=== PATIENT | female | born 1980 | race Caucasian/White ===

== ENCOUNTER → 2020-10-09 16:36 | Outpatient (CLI) | payer OTHER, SELFPAY ==
--- NOTE | ~2020-10-09 | XR_ITS ---
EXAMINATION: XR foot RT min 3V DATE: 10/09/2020 17:03 INDICATION: Posttraumatic pain at the distal phalanx of the right great toe TECHNIQUE: Dorsoplantar, two oblique and lateral views of the right foot were obtained. COMPARISON: 08/30/2017 FINDINGS: Nondisplaced tuft fracture at the distal branch of the right great toe. Alignment remains essentially anatomic. No other fractures identified. 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 Small osteophyte at the lateral base of the fifth metatarsal at the site of a now chronic healed fracture. Joint spaces are relatively preserved. Soft tissues are unremarkabl e. IMPRESSION: 1. Nondisplaced fracture at the tuft of the right first distal phalanx. Reviewed, dictated and finalized at location A. [employer]ER
== END ==
PROVIDERS: Visit Provider Nurse Practitioner Family
DX: M79.674 Pain in right toe(s) (principal); S92.811A Other fracture of right foot, initial encounter for closed fracture
CPT/HCPCS: 73630

== ENCOUNTER → 2020-11-27 15:18 | Outpatient (CLI) | payer OTHER, SELFPAY ==
--- NOTE | ~2020-11-27 | XR_ITS ---
EXAMINATION: XR foot RT min 3V DATE: 11/27/2020 16:01 INDICATION: Right foot pain. Injury. TECHNIQUE: 4 views of right foot were obtained. COMPARISON: Right foot radiographs 10/09/2020 FINDINGS: Bone alignment is normal. Again seen is a nondisplaced stellate fracture of tuft of first d istal phalanx. There is mild chronic flattening of head of second metatarsal, consistent with osteone crosis (Freiberg's infraction). There is mild osteoarthritis of some the interphalangeal joints. Ther e is a small enthesophyte at posterior aspect of calcaneal tuberosity. IMPRESSION: 1. Healing nondisplaced fracture of tuft of first distal phalanx. 2. Mild polyarticular osteoarthritis. Reviewed, dictated and finalized at location A.
== END ==
PROVIDERS: PCP Family Medicine; Visit Provider Family Medicine
DX: S92.911A Unspecified fracture of right toe(s), initial encounter for closed fracture (principal); M19.071 Primary osteoarthritis, right ankle and foot
CPT/HCPCS: 73630

== ENCOUNTER 2021-06-25 14:50 | Outpatient (RCR) | payer OTHER, SELFPAY ==
--- NOTE | 2021-06-25 16:42 | PTOPEVAL ---
INITIAL PHYSICAL THERAPY EVALUATION Thank you for referring Lara José to [facility] PT evaluation reveals R SIJ dysfunction as well as increase with urge urinary sensation. Pelvic and sacral correction were done, urge strategies were taught as well as levator strengthening exercises given. I will follow up via phone with Lara next week. If further PT is required, I will formulate a plan of care and forward it to you. I agree with the above. Referring Physician Date Admitting Provider: Attending Provider: Mary Jain CNM Referring Provider: PatyPT Outpatient Evaluation Start: 06/25/21 15:15 Freq: Status: Active Protocol: Document 06/25/21 15:10 SKYLER (Rec: 06/25/21 16:41 SKYLER [id number]) Therapy Assessment Status Assessment Status Assessment Status Evaluation Outpatient Past Medical History Past Medical History Source of Past Medical History Patient Musculoskeletal History Hx Fractures Yes: R 5th metatarsal fx 2017 surgery 2020 Evaluation Information Problem Diagnosis urinary frequency, dyspareunia in female Onset August 2019 Subjective Information Lara states that she feels Query Text:As Reported By Patient/ has to urinate all of the time Family . Good about drinking a lot of water. But also drinks increased coffee. Did have some blood in urine on one occasion with testing - but follow up testing was negative . 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 Home Meds Must Be Re-entered With Each Visit. Comments Additional Prior Level of Function recreation - read, go for Comments walks, travel, children/family , out to dinner with , wiliam Pain Assessment Timing of Pain Assessment Timing of Pain Assessment Assessment Self Report Self Report Pain Level 0 Pain Score Pain Score 0: Self Report Cervical and Lumbar ROM Lumbar ROM Lumbar ROM WNL Lumbar Comments symmetrical motion at SIJ Lower Extremity Range of Motion Hip Range of Motion Bilateral Hip Range of Motion Comments in sitting - WNL for hip flexion, abduction, adduction, IR, ER Lower Extremity Muscle Strength Testing Hip Strength Bilatera
--- NOTE | 2021-07-06 16:08 | PCPTNOTE ---
Follow up phone call made. Lara is working to decrease caffeine, using distraction to stop for going to bathroom just because she has time as well as when she wakes up at night. Did count output flow - always over 8 seconds. Overall thinks she is progressing. Decided to check in again next week again.
--- NOTE | 2021-07-14 16:03 | PCPTNOTE ---
Follow up phone call made - no answer. Message left. Will d/c from PT at this time.
--- NOTE | 2021-07-14 16:06 | PCPTNOTE ---
PHYSICAL THERAPY DISCHARGE SUMMARY Admitting Provider: Attending Provider: Mary Jain CNM Patient:Lara José Date of :1980 Lara was only seen for initial evaluation on 06/25/2021. It was decided at this visit that I would follow up via phone to see how she was doing. Did speak with Lara on 07/06/21 and she was doing well. Tried again 07/14/21 - but no answer, message left. No return phone call. Will d/c Lara from PT at this time. Thank you for referring Lara to [facility]. Please review, sign, date and return this discharge summary SKY. I have been updated about Lara's current status and I agree with discharge from the above service at this time. Referring Physician Date
== END 2021-07-15 11:17 | disposition home or self-care (01) ==
LOC: ANHPT 14:50
PROVIDERS: PCP Family Medicine
DX: R35.0 Frequency of micturition (principal); N94.10 Unspecified dyspareunia
CPT/HCPCS: 97110; 97161

== ENCOUNTER → 2021-12-02 15:30 | Outpatient (CLI) | payer OTHER, SELFPAY ==
--- NOTE | ~2021-12-02 | XR_ITS ---
EXAMINATION: [id number] DATE: 12/02/2021 15:56 INDICATION: Toe fracture at the left foot TECHNIQUE: Weight bearing dorsal plantar, oblique and lateral views of the left foot were obtained. COMPARISON: None. FINDINGS: Mildly comminuted intra-articular fracture at the distal aspect of the fourth proximal phalanx. The f racture demonstrates a V-shaped configuration with oblique fracture planes extending both medially an d laterally, proximally from the central aspect of the distal articular surface. There is mild centra l impaction with slight valgus rotation of the medial sided fragment resulting widened 2 mm medial di splacement along the proximal margin of the fracture plane. No incongruity with <1 mm fracture gap at the distal articular surface. No productive changes of healing yet apparent. Joint spaces are well m aintained. No ankle joint effusion. The soft tissues are unremarkable. IMPRESSION: 1. Mildly comminuted intra-articular fracture at the distal head of the fourth proximal phalanx which remains in near-anatomic alignment with no significant fracture gap or incongruity at the articular surface. Reviewed, dictated and finalized at location B. IMPRESSION: 1. Mildly comminuted intra-articular fracture at the distal head of the fourth proximal phalanx which remains in near-anatomic alignment with no significant f racture gap or incongruity at the articular surface.
== END ==
PROVIDERS: PCP Family Medicine
DX: S92.912A Unspecified fracture of left toe(s), initial encounter for closed fracture (principal)
CPT/HCPCS: 73630

== ENCOUNTER → 2022-02-09 08:45 | Outpatient (CLI) | payer OTHER, SELFPAY ==
--- NOTE | ~2022-02-09 | XR_ITS ---
XR cervical spine 4-5V DATE: 02/09/2022 09:30 INDICATION: Neck strain, neck injury TECHNIQUE: Standing AP, open-mouth, lateral and swimmer views COMPARISON: None FINDINGS: There is straightening of the cervical spinal which may be due to muscle spasm. C1 and C2 are normally aligned and the odontoid process is intact. No fracture or dislocation or locked facet or prevertebral soft tissue swelling. Cervical interspaces are well preserved. IMPRESSION: Straightening; otherwise negative Reviewed, dictated and finalized at location A.
== END ==
PROVIDERS: PCP Family Medicine; Visit Provider Nurse Practitioner Family
DX: S16.1XXA Strain of muscle, fascia and tendon at neck level, initial encounter (principal); M53.82 Other specified dorsopathies, cervical region
CPT/HCPCS: 72050

== ENCOUNTER → 2022-06-30 12:54 | Outpatient (CLI) | payer OTHER, SELFPAY ==
--- NOTE | ~2022-06-30 | US_ITS ---
EXAMINATION: US pelvic complete w TV DATE: 06/30/2022 13:21 INDICATION: ABN BLEEDING TECHNIQUE: Multiple transabdominal and endovaginal sonographic images of the pelvis were obtained. COMPARISON: None. FINDINGS: Uterus: 10.4 x 4.1 x 4.7 cm. Endometrial complex measures 6 mm. scar. Nabothian cysts. Right Ovary: 1.9 x 1.4 x 1.8 cm. Vascular flow is present. Left Ovary: 4.2 x 2.8 x 2.6 cm. Vascular flow is present. 3.9 cm simple left ovarian cyst. There is no free fluid in the pelvis. IMPRESSION: Normal pelvic sonogram findings. Reviewed, dictated and finalized at location K.
== END ==
PROVIDERS: PCP Family Medicine; Visit Provider Family Medicine
DX: N93.9 Abnormal uterine and vaginal bleeding, unspecified (principal)
CPT/HCPCS: 76830; 76856

== ENCOUNTER 2022-06-30 13:14 | Outpatient (CLI) | payer OTHER, SELFPAY ==
[2022-07-01 11:06] LABS: Kit Draw Collected
== END 2022-06-30 13:15 | disposition home or self-care (01) ==
LOC: ANHGOSHLAB 13:19
PROVIDERS: PCP Family Medicine; Visit Provider Nurse Practitioner Women's Health
DX: N93.9 Abnormal uterine and vaginal bleeding, unspecified (principal)
CPT/HCPCS: 36415; 76830; 76856